=== PATIENT | male | born 1985 | race Caucasian/White ===

== ENCOUNTER → 2020-08-30 | Outpatient (CLI) | payer BC | END | disposition home or self-care (01) | LOC: STAR 08:35 | PROVIDERS: ATTEND Orthopaedic Surgery | DX: Z01.812 Encounter for preprocedural laboratory examination (principal); Z20.828 Contact with and (suspected) exposure to other viral communicable diseases; S83.511A Sprain of anterior cruciate ligament of right knee, initial encounter; S83.271A Complex tear of lateral meniscus, current injury, right knee, initial encounter; X58.XXXA Exposure to other specified factors, initial encounter; Y93.89 Activity, other specified; Y92.89 Other specified places as the place of occurrence of the external cause; Y99.8 Other external cause status | CPT/HCPCS: 36415; 87635 ==

== ENCOUNTER 2020-09-04 05:13 | Day surgery (SDC) | payer BC ==
[~2020-09-04] VITALS: Ht 182.9 cm; Wt 85.7 kg
[2020-09-04 05:56] VITALS: BP 119/81
[2020-09-04] MEDS ORDERED: CHLORHEXIDINE 15 ML UDC ONE (05:59)
[2020-09-04] MEDS ORDERED: LACTATED RINGERS 1,000 ML IV SCH (06:00)
[2020-09-04] MEDS ORDERED: CHLORHEXIDINE 15 ML UDC MM ONE (06:00)
[2020-09-04] MEDS ORDERED: ROPIvacaine/PF 0.5%, 30 ML ONE (06:20)
[2020-09-04] MEDS ORDERED: LIDOCAINE/PF 1%-EPI 1:200K, 30 ML ONE (06:20)
[2020-09-04] MEDS ORDERED: FENTANYL PF 250 MCG/5ML ONE (06:42)
[2020-09-04] MEDS ORDERED: MIDAZOLAM 1 MG/ML, 2ML ONE (06:42)
[2020-09-04] MEDS ORDERED: KETOROLAC 30 MG/1 ML ONE (06:59)
[2020-09-04] MEDS ORDERED: LIDOCAINE-MPF 2% ,5ML ONE (07:36)
[2020-09-04] MEDS ORDERED: BUPIVACAINE/PF 0.5% ONE (07:44)
[2020-09-04] MEDS ORDERED: DEXAMETHASONE 4 MG/ML, 1ML ONE (08:00)
[2020-09-04] MEDS ORDERED: CEFAZOLIN 1,000 MG ONE (08:00)
[2020-09-04] MEDS ORDERED: MEPERIDINE/PF 25MG/0.5ML IVPush PRN (08:00)
[2020-09-04] MEDS ORDERED: PROMETHAZINE 25 MG/ML, 1ML IVPush PRN (08:00)
[2020-09-04] MEDS ORDERED: ACETAMINOPHEN 325 MG TABLET PO PRN (08:00)
[2020-09-04] MEDS ORDERED: METHOCARBAMOL 1,000 MG in DEXTROSE 5% 100 ML IV PRN (08:00)
[2020-09-04] MEDS ORDERED: OXYcodone 5 MG/5 ML ORAL.SOL UDC PO PRN (08:00)
[2020-09-04] MEDS ORDERED: LORazepam 2 MG/ML, 1ML IVPush PRN (08:00)
[2020-09-04] MEDS ORDERED: ONDANSETRON 2MG/ML, 2ML ONE (08:00)
[2020-09-04] MEDS ORDERED: HYDROmorphone 1 MG/ML, 1ML INJ IVPush PRN (08:00)
[2020-09-04] MEDS ORDERED: PROPOFOL 10 MG/ML, 20ML ONE (08:00)
[2020-09-04] MEDS ORDERED: MEPERIDINE/PF 25MG/ML,1ML ONE (08:20)
[2020-09-04] MEDS ORDERED: FENTANYL PF 100 MCG/2ML ONE (08:32)
[2020-09-04] MEDS ORDERED: ACETAMINOPHEN 650 MG/20.3 ML UDC ONE (08:32)
[2020-09-04] MEDS ORDERED: OXYcodone 5 MG/5 ML ORAL.SOL UDC ONE (08:33)
[2020-09-04] MEDS: FENTANYL PF 100 MCG/2ML IV PRN ×3 (08:34→08:55)
== END 2020-09-04 10:00 | disposition home or self-care (01) ==
LOC: OUT 05:13
PROVIDERS: ATTEND Orthopaedic Surgery
DX: S83.511A Sprain of anterior cruciate ligament of right knee, initial encounter (principal); S83.281A Other tear of lateral meniscus, current injury, right knee, initial encounter; M22.41 Chondromalacia patellae, right knee; M23.41 Loose body in knee, right knee; G89.18 Other acute postprocedural pain; F17.200 Nicotine dependence, unspecified, uncomplicated; Z79.891 Long term (current) use of opiate analgesic; X58.XXXA Exposure to other specified factors, initial encounter; Y93.89 Activity, other specified; Y92.89 Other specified places as the place of occurrence of the external cause; Y99.8 Other external cause status
CPT/HCPCS: 29881; 29888; 64447; C1713; J0690; J1100; J1885; J2175; J2250; J2405; J2704; J2795; J2800; J3010; J7120